=== PATIENT | male | born 1990 | race Caucasian/White ===

== ENCOUNTER 2023-08-26 11:44 | Emergency (ER) | payer OTHER, SELFPAY ==
[2023-08-26 11:51] VITALS: BP 134/87; PULSE 95; RESP 18; TEMP 36.6; O2SAT 99; BMI 29.5
--- NOTE | 2023-08-26 11:53 | ECG_ITS ---
[facility] Test Date: 2023-08-26 Pat Name: Fabrizio Singh Department: Room: Gender: Male Outpatient Psychiatrist: : 1990 Requested By: Jesús Estrada Order Number: [id number] Anny MD: Dominick Goodwin M.D. Measurements Intervals [place] Rate: 99 P: 55 [place]: 139 QRS: 29 QRSD: 91 T: 51 QT: 318 QTc: 409 Interpretive Statements SINUS RHYTHM POSSIBLE LEFT ATRIAL ENLARGEMENT [-0.1mV P-WAVE IN V1/V2] No previous ECG available for comparison Electronically Signed On 08-26-2023 12:08:27 CDT by Dominick Goodwin M.D. [email or web address].[employer] [place]/store/OM/[id number]
--- NOTE | 2023-08-26 12:45 | ED_ITS ---
HPI - Arrhythmia/Palpitations General: Chief Complaint: Arrhythmia/Palpitations Stated Complaint: pounding heart beating Time Seen by Provider: 08/26/23 12:45 Source: patient Mode of arrival: ambulatory History of Present Illness: 33-year-old male presents emergency room complaining of palpitations. He admits to fair amount of anxiety. He is not having any chest pain or shortness of breath. Not previously been evaluated for this does not use large amount of stimulants or caffeine intake. Non-smoker no family history of coronary disease no history of arrhythmias. MD complaint: rapid heart beat, skipped beats and palpitations Onset (ago): week(s) (3) Duration: intermittent Severity: mild Context: occurred during rest Associated symptoms: Reports anxiety; Deny cough, diaphoresis, muscle cramps, nausea, paresthesias, pre-syncope, sense of impending doom, short of breath, syncope or vomiting Review of Systems Const: Denies: fever(s), chills or diaphoresis Card: Reports: palpitations and irregular heart rhythm; Denies: chest pain, syncope or pre-syncope Resp: Denies: dyspnea GI: Denies: nausea or vomiting : Denies: dysuria, urinary frequency or urinary urgency Musc: Denies: muscle cramps Skin/Breast: Denies: rash Neuro: Denies: headache(s) Psych: Reports: anxiety Physical Exam Const: COMMON NORMALS: no acute distress GENERAL APPEARANCE: cooperative and comfortable ORIENTATION/CONSCIOUSNESS: Yes awake, Yes oriented to person, Yes oriented to place and Yes oriented to time HENMT: COMMON NORMALS: normocephalic, atraumatic and hearing grossly normal bilaterally HEAD & SCALP: normocephalic and atraumatic Resp: COMMON NORMALS: normal respiratory effort, No retractions, No use of accessory muscles and clear to auscultation bilaterally AUSCULTATION: clear to auscultation bilaterally Cardio: COMMON NORMALS: regular rate, regular rhythm and No murmurs present (Cardio) RATE: regular rate RHYTHM: regular rhythm GI: COMMON NORMALS: Soft to palpation and No hepatosplenomegaly present AUSCULTATION: Yes normoactive bowel sounds PALPATION: Yes Soft to palpation, No Tenderness to palpation present (GI), No Guarding due to palpation present (GI) and Yes No hepatosplenomegaly present Extremity: COMMON NORMALS: normal to inspection, capillary refill normal, no clubbing, cyanosis or edema, no calf tenderness and no pedal edema Neuro: SENSORIUM/ORIENTATION: Yes oriented to person, Yes oriented to place and Yes oriented to time Skin: COMMON NORMALS: no rashes or lesions noted GENERAL SKIN EXAM: no r ashes or lesions noted Course Vital Signs: Vital signs: Vital Signs Temperature 97.8 F 08/26/23 11:51 Pulse Rate 72 08/26/23 14:41 Respiratory Rate 18 08/26/23 14:41 Blood Pressure 162/95 08/26/23 14:41 Pulse Oximetry 96 08/26/23 14:41 Oxygen Delivery Me thod Room Air 08/26/23 14:41 MDM - Arrhythmia/Palpitations Medical Decision Making Patient given metoprolol here blood pressure improved. Tachycardia improved with rest on the metoprolol. Laboratory test reviewed discussed with the patient EKG shows no acute changes no arrhythmias. Discharge patient home set up 48-hour Holter monitor follow-up with primary care started on amlodipine 2.5 mg p.o. daily for elevated blood pressure. Medical Records I reviewed the patient's medical records. Lab Data I reviewed the patient's lab results. 08/26/23 12:55 08/26/23 12:55 Laboratory Results WBC 10.42 10^3/uL (3.29-11.43) 08/26/23 12:55 RBC 4.98 10^6/uL (3.85-5.65) 08/26/23 12:55 Hgb 16.00 g/dL (11.27-16.99) 08/26/23 12:55 Hct 45.6 % (37-53) 08/26/23 12:55 MCV 91.6 fl (82-101) 08/26/23 12:55 MCH 32.1 pg (27-33) 08/26/23 12:55 MCHC 35.1 g/dL (30-55) 08/26/23 12:55 RDW 12.2 % (12.1-15.1) 08/26/23 12:55 Plt Count 267 10^3/cmm (157-399) 08/26/23 12:55 MPV 9.7 fL (7.4-10.4) 08/26/23 12:55 Neut % (Auto) 85.6 % 08/26/23 12:55 Lymph % (Auto) 9.9 % 08/26/23 12:55 [place] % (Auto) 4.0 % 08/26/23 12:55 Eos % (Auto) 0.0 % 08/26/23 12:55 Baso % (Auto) 0.2 % 08/26/23 12:55 Neut # (Auto) 8.92 10^3/uL (1.8-7.7) H 08/26/23 12:55 Lymph # (Auto) 1.0 10^3/uL (0.8-4.8) 08/26/23 12:55 [place] # (Auto) 0.4 10^3/uL (0.2-0.9) 08/26/23 12:55 Eos # (Auto) 0.0 10^3/uL (0.0-0.8) 08/26/23 12:55 Baso # (Auto) 0.0 10^3/uL (0.0-0.1) 08/26/23 12:55 Nucleated RBC % (auto) 0 % 08/26/23 12:55 Nucleated RBCs # 0.0 /100WBC 08/26/23 12:55 Sodium 137 mmol/L (136-145) 08/26/23 12:55 Potassium 3.8 mmol/L (3.5-5.1) 08/26/23 12:55 Chloride 102 mmol/L (98-107) 08/26/23 12:55 Carbon Dioxide 25 mmol/L (22-29) 08/26/23 12:55 Anion Gap 13.8 (5-19) 08/26/23 12:55 BUN 13 mg/dL (6-20) 08/26/23 12:55 Creatinine 0.9 mg/dL (0.7-1.2) 08/26/23 12:55 GFR Calculation 96.6 mL/min (90-130) 08/26/23 12:55 Glucose 115 mg/dL (65-115) 08/26/23 12:55 Calculated Osmolality 285 mOsm/kg (285-295) 08/26/23 12:55 Calcium 10.4 mg/dL (8.5-10.5) 08/26/23 12:55 Total Bilirubin 0.5 mg/dL (0.15-1.2) 08/26/23 12:55 AST 18 U/L (0-40) 08/26/23 12:55 ALT 32 U/L (0-41) 08/26/23 12:55 Alkaline Phosphatase 67 U/L (40-130) 08/26/23 12:55 Total Protein 8.3 g/dL (6.6-8.7) 08/26/23 12:55 Albumin 5.1 g/dL (3.5-5.2) 08/26/23 12:55 Globulin 3.2 g/dL (1.3-4.6) 08/26/23 12:55 TSH 1.07 uIU/mL (0.27-4.20) 08/26/23 12:55 No radiology studies performed this visit Discharge Plan Discharge Patient Disposition: Home Clinical Impression: Palpitations, Anxiety, Elevated blood pressure reading Condition: Stable Prescriptions: New amlodipine 2.5 mg tablet 2.5 mg PO DAILY Qty: 30 0RF No Action omega-3 fatty acids [Fish Oil Concentrate] 1,000 mg Capsule 2,000 mg PO DAILY PRN (Reason: unknown) Excedrin Migraine 250-250-65 mg Tablet 2 tab PO Q6H PRN (Reason: Migraine Headache) naproxen 500 mg Tablet 500 mg PO BID PRN (Reason: Pain) Prilosec OTC 20 mg Tablet,Delayed Release (Dr/Ec) 40 mg PO QAM Discharge Orders: Discharge ED (Routine); Ordered 08/26/23 Ordered By: Jesús Boss Referrals: Gabi Jauregui MD [Primary Care Provider] - Discharge Diet: Usual diet Discharge Activity: Increase activity as tolerated Patient Instructions: Opioid Safety, Pain Management Activity Restrictions/Additional Instructions: Thank you for choosing [facility] for your healthcare needs today. Please realize this is an emergency room and that we are providing you with a medical screening exam and this may not be complete and all inclusive of all the testing and or work up that you may need to determine your ailment or severity of your illness. It is very important that you follow up as instructed or that you return to the Emergency Department should you have concerns or if your condition changes or worsens in any way. Based on your history and your exam and laboratory test suspect that these are episodes of PACs or PVCs which are benign. You should have a 48-hour Holter monitor as an outpatient to further evaluate. Your blood pressure was also significantly elevated in the emergency room recommend to start on amlodipine 2.5 mg daily follow-up with your primary care doctor to see if they recommend continuing that. Coding Level of Care Code ED Operations Associate for Syed Roman
[2023-08-26 12:51] VITALS: BP 172/109; PULSE 109; RESP 18; O2SAT 98
[2023-08-26 13:02] VITALS: BP 152/99; PULSE 92; RESP 18; O2SAT 97
[2023-08-26 13:10] LABS: Basophils % 0.2 %; Hematocrit 45.6 % (37-53); Lymphocytes % 9.9 %; Mean Corpuscular HGB Conc 35.1 g/dL (30-55); Mean Corpuscular Hemoglobin 32.1 pg (27-33); Mean Corpuscular Volume 91.6 fl (82-101); Mean Platelet Volume 9.7 fL (7.4-10.4); Monocytes # 0.4 10^3/uL (0.2-0.9); Neutrophils # 8.92 10^3/uL (1.8-7.7); Neutrophils % 85.6 %; Nucleated Red Blood Cells % 0 %; Platelet Count 267 10^3/cmm (157-399); Red Blood Count 4.98 10^6/uL (3.85-5.65); Red Cell Distribution Width 12.2 % (12.1-15.1); White Blood Count 10.42 10^3/uL (3.29-11.43)
[2023-08-26 13:43] LABS: Alanine Aminotransferase 32 U/L (0-41); Albumin Level 5.1 g/dL (3.5-5.2); Alkaline Phosphatase 67 U/L (40-130); Anion Gap 13.8 (5-19); Aspartate Amino Transferase 18 U/L (0-40); Blood Urea Nitrogen 13 mg/dL (6-20); Calcium 10.4 mg/dL (8.5-10.5); Carbon Dioxide 25 mmol/L (22-29); Chloride 102 mmol/L (98-107); Globulin 3.2 g/dL (1.3-4.6); Glomerular Filtration Rate 96.6 mL/min (90-130); Glucose 115 mg/dL (65-115); Osmolality Calculated 285 mOsm/kg (285-295); Potassium 3.8 mmol/L (3.5-5.1); Sodium 137 mmol/L (136-145); Thyroid Stimulating Hormone 1.07 uIU/mL (0.27-4.20); Total Bilirubin 0.5 mg/dL (0.15-1.2); Total Protein 8.3 g/dL (6.6-8.7)
--- NOTE | 2023-08-26 14:00 | PC.PHAR ---
pt states he takes care of his own medications-pt [facility]-pt states he is not on any kind of blood pressure meds,insulins,steroids or inhalers, pt states he doesnt take aspirin either-pt states he only takes the meds entered-faxed [place] for med list to verify no other meds are sent
[2023-08-26 14:41] VITALS: BP 162/95; PULSE 72; RESP 18; O2SAT 96
--- NOTE | 2023-08-27 02:38 | DCPLANNER ---
Message sent to cardiology for referral for a 48 hr holter monitor for palpitations.
== END 2023-08-26 14:43 | disposition home or self-care (01) ==
PROVIDERS: Emergency Provider Family Medicine; PCP Family Medicine
DX: R00.2 Palpitations (principal); F41.9 Anxiety disorder, unspecified; R03.0 Elevated blood-pressure reading, without diagnosis of hypertension
CPT/HCPCS: 80053; 84443; 85025; 93005; 99284

== ENCOUNTER 2023-09-08 12:44 | Emergency (ER) | payer OTHER, SELFPAY ==
[2023-09-08 12:45] VITALS: BP 166/103; PULSE 69; RESP 18; TEMP 36.6; O2SAT 99; BMI 28.5
--- NOTE | 2023-09-08 12:49 | ECG_ITS ---
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 Measurements Intervals [place] Rate: 59 P: 39 ID: 147 QRS: 14 QRSD: 99 T: 28 QT: 369 QTc: 368 Interpretive Statements SINUS BRADYCARDIA MINIMAL VOLTAGE CRITERIA FOR LVH, CONSIDER NORMAL VARIANT [MEETS CRITERIA IN ONE OF: R(aVL), S(V1), R(V5), R(V5/V6)+S(V1)] Compared to ECG 08/26/2023 11:53:20 Sinus rhythm no longer present Electronically Signed On 09-08-2023 15:11:53 SENIOR UI WEB DEVELOPER by Amish Donovan M.D. [id number]
[2023-09-08 13:06] LABS: Basophils # 0.1 10^3/uL (0.0-0.1); Basophils % 0.7 %; Eosinophils % 0.4 %; Lymphocytes # 2.5 10^3/uL (0.8-4.8); Mean Corpuscular Hemoglobin 32.5 pg (27-33); Mean Corpuscular Volume 92.7 fl (82-101); Mean Platelet Volume 9.7 fL (7.4-10.4); Monocytes # 0.5 10^3/uL (0.2-0.9); Monocytes % 6.9 %; Neutrophils # 3.87 10^3/uL (1.8-7.7); Neutrophils % 55.9 %; Nucleated Red Blood Cells % 0 %; Platelet Count 310 10^3/cmm (157-399); Red Blood Count 4.96 10^6/uL (3.85-5.65); Red Cell Distribution Width 12.2 % (12.1-15.1); White Blood Count 6.94 10^3/uL (3.29-11.43)
--- NOTE | 2023-09-08 13:07 | PC.PHAR ---
LEIDY CURIEL FOR MED LIST 1:08 PM 09/08/23
--- NOTE | 2023-09-08 13:12 | ED_ITS ---
HPI - Syncope General: Chief Complaint: Syncope Stated Complaint: Syncope Time Seen by Provider: 09/08/23 12:46 History of Present Illness: Patient presents from the [place] with a near syncopal episode. Patient states he felt lightheaded and dizzy that his hearing started to go and his vision started to go he got very diaphoretic. He is feeling better now but still not back to normal. Patient states this been going on intermittently for about the last 2 weeks with patient having extreme weakness to the point that he has to sit down during the shower and have his roll him around in a wheelchair. Patient states he has been to the ER been to the [facility] had labs drawn and for some reason they just keeps saying its his gallbladder and his cholesterol. Patient was recently started on a magnesium supplement by his brother and he said this is helped immensely. Review of Systems General: Reports: 10 or more systems reviewed and unremarkable except in HPI and below Physical Exam Const: COMMON NORMALS: no acute distress, average body habitus, patient oriented x3, no limitations, healthy appearing, alert and well nourished HENMT: COMMON NORMALS: normocephalic, atraumatic, hearing grossly normal bilaterally, external ears normal, Normal external nose present, moist oral mucous membranes and oropharynx normal HEAD & SCALP: normocephalic and atraumatic NOSE: Normal external nose present EXTERNAL EAR: Yes external ears normal Eye: COMMON NORMALS: Equal, round and reactive pupils present, EOMs intact bilaterally, conjunctivae normal and no scleral icterus CONJUNCTIVA: Yes conjunctivae normal PUPIL: Yes Equal, round and reactive pupils present Neck/C-Spine: COMMON NORMALS: full ROM, no lymphadenopathy, supple, no meningeal signs, no JVD and Thyroid normal THYROID: Thyroid normal Chest: COMMONS NORMALS: normal inspection of the chest and normal palpation of entire chest wall Resp: COMMON NORMALS: normal respiratory effort, No retractions, No use of accessory muscles and clear to auscultation bilaterally AUSCULTATION: clear to auscultation bilaterally Cardio: COMMON NORMALS: no JVD, regular rate, regular rhythm, S1 normal heart sound present, S2 normal heart sound present, No gallops present (Cardio), No clicks present (Cardio), No murmurs present (Cardio) and No rub (Cardio) RATE: regular rate RHYTHM: regular rhythm HEART SOUNDS: S1 normal heart sound present and S2 normal heart sound present GI: COMMON NORMALS: Normal to inspection, nondistended, normoactive bowel sounds present, Soft to palpation, non-tender, No hepatosplenomegaly present and no masses PALPATION: Yes Soft to palpation and Yes No hepatosplenomegaly present Neuro: COMMON NORMALS: patient oriented x3 SENSORIUM/ORIENTATION: Yes alert MENINGEAL SIGNS: Yes no meningeal signs Course Vital Signs: Vital signs: Vital Signs Temperature 97.8 F 09/08/23 12:45 Pulse Rate 69 09/08/23 12:45 Respiratory Rate 18 09/08/23 12:45 Blood Pressure 166/103 09/08/23 12:45 Pulse Oximetry 99 09/08/23 12:45 Oxygen Delivery Me thod Room Air 09/08/23 12:45 MDM - Syncope Medical Decision Making patient had lab work, urinalysis and urine drug screen performed as well as an ultrasound of his right upper quadrant all of which essentially were benign. no reason for patient's near syncopal episode or weakness. Patient will be discharged from the ER and told to follow back up with his PCP for further evaluation testing. Differential Diagnosis Unlikely syncope due to orthostatic hypotension, vasovagal syncope, complete atr ioventricular block, subarachnoid hemorrhage, pulmonary embolism or dehydration Medical Records I reviewed the patient's medical records. Lab Data I reviewed the patient's lab results. 09/08/23 12:52 09/08/23 12:52 Laboratory Results WBC 6.94 10^3/uL (3.29-11.43) 09/08/23 12:52 RBC 4.96 10^6/uL (3.85-5.65) 09/08/23 12:52 Hgb 16.10 g/dL (11.27-16.99) 09/08/23 12:52 Hct 46.0 % (37-53) 09/08/23 12:52 MCV 92.7 fl (82-101) 09/08/23 12:52 MCH 32.5 pg (27-33) 09/08/23 12:52 MCHC 35.0 g/dL (30-55) 09/08/23 12:52 RDW 12.2 % (12.1-15.1) 09/08/23 12:52 Plt Count 310 10^3/cmm (157-399) 09/08/23 12:52 MPV 9.7 fL (7.4-10.4) 09/08/23 12:52 Neut % (Auto) 55.9 % 09/08/23 12:52 Lymph % (Auto) 36.0 % 09/08/23 12:52 [place] % (Auto) 6.9 % 09/08/23 12:52 Eos % (Auto) 0.4 % 09/08/23 12:52 Baso % (Auto) 0.7 % 09/08/23 12:52 Neut # (Auto) 3.87 10^3/uL (1.8-7.7) 09/08/23 12:52 Lymph # (Auto) 2.5 10^3/uL (0.8-4.8) 09/08/23 12:52 [place] # (Auto) 0.5 10^3/uL (0.2-0.9) 09/08/23 12:52 Eos # (Auto) 0.0 10^3/uL (0.0-0.8) 09/08/23 12:52 Baso # (Auto) 0.1 10^3/uL (0.0-0.1) 09/08/23 12:52 Nucleated RBC % (auto) 0 % 09/08/23 12:52 Nucleated RBCs # 0.0 /100WBC 09/08/23 12:52 Sodium 138 mmol/L (136-145) 09/08/23 12:52 Potassium 3.9 mmol/L (3.5-5.1) 09/08/23 12:52 Chloride 102 mmol/L (98-107) 09/08/23 12:52 Carbon Dioxide 24 mmol/L (22-29) 09/08/23 12:52 Anion Gap 15.9 (5-19) 09/08/23 12:52 BUN 11 mg/dL (6-20) 09/08/23 12:52 Creatinine 1.1 mg/dL (0.7-1.2) 09/08/23 12:52 GFR Calculation 76.6 mL/min (90-130) L 09/08/23 12:52 Glucose 118 mg/dL (65-115) H 09/08/23 12:52 Calculated Osmolality 286 mOsm/kg (285-295) 09/08/23 12:52 Calcium 9.8 mg/dL (8.5-10.5) 09/08/23 12:52 Magnesium 2.3 mg/dL (1.7-2.3) 09/08/23 12:52 Total Bilirubin 0.4 mg/dL (0.15-1.2) 09/08/23 12:52 AST 17 U/L (0-40) 09/08/23 12:52 ALT 20 U/L (0-41) 09/08/23 12:52 Alkaline Phosphatase 69 U/L (40-130) 09/08/23 12:52 Creatine Kinase 95 U/L (39-308) 09/08/23 12:52 Troponin T Baseline < 6 ng/L (0-15) 09/08/23 12:52 Troponin T 120 Minute 6.0 ng/L (0-15) 09/08/23 14:36 Delta Troponin T 0.38383 ABS# (0-10) 09/08/23 14:36 Total Protein 8.0 g/dL (6.6-8.7) 09/08/23 12:52 Albumin 5.1 g/dL (3.5-5.2) 09/08/23 12:52 Globulin 2.9 g/dL (1.3-4.6) 09/08/23 12:52 Lipase 43 U/L (13-60) 09/08/23 12:52 Urine Color Yellow (Yellow) 09/08/23 13:17 Urine Appearance Clear (CLEAR) 09/08/23 13:17 Urine pH 8 (5-7) H 09/08/23 13:17 Ur Specific [place] 1.005 (1.005-1.030) 09/08/23 13:17 Urine Protein Neg (Negative) 09/08/23 13:17 Urine Glucose (UA) Norm (Normal) 09/08/23 13:17 Urine Ketones Negative (Negative) 09/08/23 13:17 Urine Blood Neg (Negative) 09/08/23 13:17 Urine Nitrate Negative (Negative) 09/08/23 13:17 Urine Bilirubin Neg (Negative) 09/08/23 13:17 Prot Sulfosalicylic Acd Negative (Negative) 09/08/23 13:17 Urine Urobilinogen Norm mg/dL (Negative) 09/08/23 13:17 Ur Leukocyte Esterase Negative (Negative) 09/08/23 13:17 Urine Opiates Screen Negative ng/mL (Negative) 09/08/23 13:17 Ur Barbiturates Screen Negative ng/mL (Negative) 09/08/23 13:17 Ur Phencyclidine Scrn Negative ng/mL (Negative) 09/08/23 13:17 Ur Amphetamines Screen Negative ng/mL (Negative) 09/08/23 13:17 U Benzodiazepines Scrn Negative ng/mL (Negative) 09/08/23 13:17 Urine Cocaine Screen Negative ng/mL (Negative) 09/08/23 13:17 U Marijuana (THC) Screen Negative ng/mL (Negative) 09/08/23 13:17 All radiology interpretation(s) finalized by discharge EKG Data EKG 1: I personally reviewed and interpreted this EKG as follows: EKG interpretation date: 09/08/23 EKG interpretation time: 12:49 Prior EKG tracings: not available for review Interpretation: EKG showed ventricular rate 59 bpm, FL interval 147, QRS duration 99, QTc of 369, sinus bradycardia, Discharge Plan Discharge Patient Disposition: Home Clinical Impression: Near syncope Hypertension Qualifiers: Hypertension type: unspecified Qualified Code(s): I10 - Essential (primary) hypertension Condition: Stable Prescriptions: No Action omeprazole 40 mg Capsule,Delayed Release(Dr/Ec) 40 mg PO QAM rosuvastatin 20 mg Tablet 10 mg PO QPM omega-3 fatty acids [Fish Oil Concentrate] 1,000 mg Capsule 2,000 mg PO DAILY PRN (Reason: unknown) Excedrin Migraine 250-250-65 mg Tablet 2 tab PO Q6H PRN (Reason: Migraine Headache) amlodipine 2.5 mg tablet 2.5 mg PO DAILY Qty: 30 0RF Discharge Orders: Discharge ED (Routine); Ordered 09/08/23 Ordered By: Andre Jordan Referrals: Gabi Jauregui MD [Primary Care Provider] - 1 week Patient Instructions: Hypertension (ED), Near Syncope (ED) Activity Restrictions/Additional Instructions: your work-up in the ER that included labs, EKG, ultrasound of the right upper quadrant all was essentially negative and did not show any reason for your symptomatology. Please follow-up with your family practice physician within the next 7 to 10 days for further evaluation and treatment. Coding Level of Care Code ED Take Away Worker for Chg Fwd
--- NOTE | 2023-09-08 13:13 | PC.NURSE ---
care this nurse took over care of this pt at this time.
--- NOTE | 2023-09-08 13:14 | US_ITS ---
WS: [id number] ULTRASOUND ABDOMEN LIMITED CLINICAL INFORMATION: ruq, n/v/diaphoresis, hyperlipidemia, near syncope COMPARISON: None. FINDINGS: Liver Size: Normal. Craniocaudal length: 15.0 cm. Echogenicity: Normal. Surface nodularity: None. Mass (size and location): None. Bile ducts Intrahepatic ducts: Normal. Common bile duct diameter: 0.5 cm. Gallbladder Normal. Gallstones: None. Gallbladder sludge: None. Gallbladder wall thickening: None. Pericholecystic fluid: None. Sonographic Peres sign: Absent. Pancreas Normal as visualized. Right kidney: Normal. Hydronephrosis: None. Size: 10.3 cm x 5.4 cm x 4.4 cm. Abdominal aorta and IVC Visualized portions are normal. Ascites: None. IMPRESSION: 1. Normal liver. 2. Gallbladder is normal in appearance. No significant gallbladder wall thickening or pericholecysti c fluid. No cholelithiasis. 3. Normal common bile duct. 4. No hydronephrosis in the RIGHT kidney.
[2023-09-08 13:21] LABS: Troponin(5th) Baseline < 6 ng/L (0-15)
[2023-09-08 13:28] LABS: Add Urine Microscopic? NO; Charge for UA Resulting for Rev
[2023-09-08 13:30] LABS: Alanine Aminotransferase 20 U/L (0-41); Albumin Level 5.1 g/dL (3.5-5.2); Alkaline Phosphatase 69 U/L (40-130); Anion Gap 15.9 (5-19); Aspartate Amino Transferase 17 U/L (0-40); Blood Urea Nitrogen 11 mg/dL (6-20); Calcium 9.8 mg/dL (8.5-10.5); Carbon Dioxide 24 mmol/L (22-29); Chloride 102 mmol/L (98-107); Globulin 2.9 g/dL (1.3-4.6); Glomerular Filtration Rate 76.6 mL/min (90-130); Glucose 118 mg/dL (65-115); Magnesium 2.3 mg/dL (1.7-2.3); Osmolality Calculated 286 mOsm/kg (285-295); Potassium 3.9 mmol/L (3.5-5.1); Sodium 138 mmol/L (136-145); Total Bilirubin 0.4 mg/dL (0.15-1.2)
[2023-09-08 13:40] LABS: Lipase 43 U/L (13-60)
[2023-09-08 13:50] LABS: Bilirubin Urine Neg (Negative); Blood Urine Neg (Negative); Glucose Urine UA Norm (Normal); Ketones Urine Negative (Negative); Leukocyte Esterase Urine Negative (Negative); Nitrate Urine Negative (Negative); Protein Urine Neg (Negative); Specific Gravity, Urine 1.005 (1.005-1.030); Sulfosalicylic Acid Urine Negative (Negative); Urine Appearance Clear (CLEAR); Urine Color Yellow (Yellow); Urobilinogen Urine Norm (Negative); pH Urine 8 (5-7)
[2023-09-08 13:57] LABS: Amphetamines Screen Urine Negative (Negative); Barbiturates Screen Urine Negative (Negative); Benzodiazepines Screen Urine Negative (Negative); Cocaine Screen Urine Negative (Negative); Opiate Screen Urine Negative (Negative); PCP Screen Urine Negative (Negative); THC Screen Urine Negative (Negative)
[2023-09-08 14:17] LABS: Creatine Phosphokinase 95 U/L (39-308)
--- NOTE | 2023-09-08 14:51 | ECG_ITS ---
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 Measurements Intervals [place] Rate: 84 P: 152 [place]: 141 QRS: 190 QRSD: 98 T: 155 QT: 333 QTc: 394 Interpretive Statements ECTOPIC ATRIAL RHYTHM POSSIBLE RIGHT VENTRICULAR HYPERTROPHY [SOME/ALL OF: PROMINENT R IN V1, LATE TRANSITION, RAD, BROOKE, SSS] Compared to ECG 09/08/2023 12:49:16 Ectopic atrial rhythm now present Sinus bradycardia no longer present Electronically Signed On 09-08-2023 15:13:03 SEO ANALYST by Amish Donovan M.D. [email or web address] [email or web address]/store/[id number]
[2023-09-08 15:19] LABS: Troponin 5 2HR Delta 0.00001 ABS# (0-10)
[2023-09-08 17:14] VITALS: BP 180/109
== END 2023-09-08 16:45 | disposition home or self-care (01) ==
PROVIDERS: Emergency Provider Emergency Medicine; PCP Family Medicine
DX: R55 Syncope and collapse (principal); I10 Essential (primary) hypertension
CPT/HCPCS: 76705; 80053; 80306; 81003; 82550; 83690; 83735; 84484; 85025; 93005; 99284

== ENCOUNTER → 2023-09-23 09:21 | Outpatient (BNVA) | payer OTHER, SELFPAY | PROVIDERS: PCP Family Medicine; Visit Provider Internal Medicine | DX: R00.2 Palpitations (principal); R00.1 Bradycardia, unspecified; R00.0 Tachycardia, unspecified; I49.1 Atrial premature depolarization; I49.3 Ventricular premature depolarization | CPT/HCPCS: 93246 ==

== ENCOUNTER → 2023-09-27 12:20 | Outpatient (BNVA) | payer OTHER, SELFPAY | PROVIDERS: PCP Family Medicine; Visit Provider Internal Medicine | DX: R00.2 Palpitations (principal); I10 Essential (primary) hypertension | CPT/HCPCS: 99204 ==

== ENCOUNTER 2023-09-30 07:51 | Outpatient (CLI) | payer OTHER, SELFPAY ==
--- NOTE | 2023-09-30 | US_ITS ---
WS: [id number] RIGHT UPPER QUADRANT ULTRASOUND HISTORY: ABD PAIN COMPARISON: 09/08/2023 Liver: 14.5 cm in length. Normal size liver and echogenicity. No bile duct dilatation or mass. Portal Vein: Normal hepatopetal flow with monophasic waveform. Gallbladder: Normally distended gallbladder with no stones or wall thickening. CBD: 0.4 cm Pancreas: Normal size and echogenicity. Right kidney: 10.2 cm in length. Normal size and echogenicity. No hydronephrosis or mass. Aorta and IVC: Unremarkable abdominal aorta and IVC. No ascites. IMPRESSION: Normal RIGHT upper quadrant ultrasound.
--- NOTE | 2023-09-30 08:30 | USCV_ITS ---
Fabrizio Singh Age: 33 Gender: M : 1990 Exam Date: 09/30/2023 08:04 Ordering Phys: Dominick Goodwin M.D ([email or web address]) Technologist: Exam Location: [facility] – [place] Indication: irregular heart beat BP: 136 / 76 HR: 78 Rhythm: Sinus Technical Quality: MEASUREMENTS (Male / Female) Normal Values 2D ECHO LV Diastolic Diameter PLAX 4.5 cm 4.2 - 5.9 / 3.9 - 5.3 cm LV Systolic Diameter PLAX 2.8 cm IVS Diastolic Thickness 1.1 cm 0.6 - 1.0 / 0.6 - 0.9 cm IVS Systolic Thickness 1.7 cm LVPW Diastolic Thickness 1.2 cm 0.6 - 1.0 / 0.6 - 0.9 cm LVPW Systolic Thickness 1.4 cm LVOT Diameter 2.1 cm LV Ejection Fraction 2D Teich 69.3 % LV Ejection Fraction MOD 2C 76.0 % LV Ejection Fraction 2C AL 77.5 % LA Diameter 3.4 cm IVC Diameter 1.8 cm M-MODE RV Diastolic Diameter MM 3.0 cm MV E Point Septal Separation 1.0 cm DOPPLER AV Peak Velocity 144.0 cm/s LVOT Peak Velocity 88.0 cm/s AV Area Cont Eq vti 2.8 cm squared AV Area Cont Eq pk 2.0 cm squared MV Area PHT 4.5 cm squared Mitral E to A Ratio 1.0 MV E' Velocity 33.5 cm/s Mitral E to MV E' Ratio 5.6 Mitral E to LV E' Lateral Ratio 5.2 Mitral E to LV E' Septal Ratio 6.0 TR Peak Velocity 110.0 cm/s TR Peak Gradient 4.8 mmHg TV Peak E Velocity 100.0 cm/s Right Atrial Pressure 3.0 mmHg Pulmonary Artery Systolic Pressu 7.8 mmHg RV Acceleration Time 0.1 s FINDINGS Left Ventricle Left ventricle is normal in size. LV systolic function is normal with EF of 50-55%. No regional wall motion abnormalities. Right Ventricle Normal in size and function Right Atrium Normal in size Left Atrium Normal in size Mitral Valve Structurally normal mitral valve. Trace mitral regurgitation. Aortic Valve Structurally normal aortic valve. Trace aortic regurgitation. No significant stenosis. Tricuspid Valve Mild tricuspid regurgitation. Insufficient TR jet to calculate RVSP Pulmonic Valve Not well visualized Pericardium Normal Aorta Normal in size IVC Appears to be normal CONCLUSIONS LV systolic function is normal with EF of 50-55% Trace mitral regurgitation Trace aortic regurgitation Mild tricuspid regurgitation. No comparison studies are available. Dominick Goodwin MD (Electronically Signed) Final Date: 01 October 2023 12:02 S
== END 2023-09-30 07:52 | disposition home or self-care (01) ==
LOC: RAD 07:52
PROVIDERS: PCP Family Medicine; Visit Provider Internal Medicine
DX: R07.9 Chest pain, unspecified (principal); R10.9 Unspecified abdominal pain; R00.9 Unspecified abnormalities of heart beat; I07.1 Rheumatic tricuspid insufficiency
CPT/HCPCS: 76705; 93306

== ENCOUNTER → 2023-11-01 12:16 | Outpatient (BNVA) | payer OTHER, SELFPAY | PROVIDERS: PCP Family Medicine; Visit Provider Internal Medicine | DX: R00.2 Palpitations (principal); I10 Essential (primary) hypertension | CPT/HCPCS: 99214 ==